=== PATIENT | female | born 1950 | race Caucasian/White ===

== ENCOUNTER 2023-08-28 06:31 | Emergency (ER) | payer MEDICARE, OTHER, SELFPAY ==
[2023-08-28] VITALS (8 sets, daily range): BP systolic 127–164; BP diastolic 55–72; BMI 20.9
[2023-08-28 07:05] LABS: % Basophils 0.7 % (0-2); % Eosinophils 2.2 % (0-6); % Immature Granulocytes 0.6 % (0-0.5); % Lymphocytes 11.9 % (20.5-51.1); % Monocytes 5.2 % (1.7-9.3); % Neutrophils 79.4 % (42.2-75.2); Absolute Basophils 0.1 10^3/uL (0-0.2); Absolute Eosinophils 0.2 10^3/uL (0-0.7); Absolute Immature Granulocytes 0.1 10^3/uL (0-0.05); Absolute Lymphocytes 1.2 10^3/uL (1.2-3.4); Absolute Monocytes 0.5 10^3/uL (0.1-0.6); Absolute Neutrophils 7.9 10^3/uL (1.4-6.5); Hematocrit 40.4 % (37.0-47.0); Hemoglobin 13.7 g/dL (12.0-16.0); Mean Corp Hgb Conc. 33.9 g/dL (33.0-37.0); Mean Corpuscular Hgb 30.3 pg (27.0-31.0); Mean Corpuscular Volume 89.4 fL (81.0-99.0); Mean Platelet Volume 10.7 fL (7.4-10.4); Nucleated Red Blood Cells % 0 %; Platelet Count 187 10^3/uL (130-400); Red Blood Cell Count 4.52 10^6/uL (4.20-5.40)
--- NOTE | 2023-08-28 07:27 | ED.GENMED ---
History of Present Illness
General
Chief Complaint: Chest Pain
Source: patient
Exam Limitations: none
Time Seen by Provider: 08/28/23 07:03
Nursing documentation reviewed up to this point in time: agreed with
Travel History
Have you had any contact with someone who has COVID-19?: No
Do you have any symptoms of coronavirus? Fever > 100 degrees, chills, cough, shortness of breath, sore throat, loss of taste or smell, muscle aches, or headache?: No
History of Present Illness
History of Present Illness:
73-year-old female with a history of breast cancer status postlumpectomy and radiation at [place] on an estrogen cheryl presents for sudden onset of right upper chest pain and shoulder pain that woke her up from sleep at 4 AM. Patient says it
hurts to take a deep breath or move her right arm or change positions. Patient says she got up and tried to walk around thinking maybe it would help but it did not. It was probably an 8 out of 10 when it suddenly started this morning and has
dissipated some to 6 out of 10 if she is not moving or taking a deep breath. She does not have a rash, fever, cough, cold symptoms, nausea or vomiting, diaphoresis. Patient says intermittently sparingly over the last year or 2 she has had right
upper extremity pain when she walks. Patient says she walks 3 to 5 miles a day and usually by the third mile she starts to have some discomfort. It is very sparingly and does not usually bother her but has over the last couple years to the point
that she did speak with her family doctor about it but was never referred to cardiology. She has had no other exertional symptoms. Patient is never had a DVT or PE, she is not had any recent long travel, she has not had any recent surgery. As far
she is aware she has breast cancer free
Past History
Past History
ED Past Medical History: Cancer (Breast)
ED Past Surgical History: Other (Lumpectomy)
Social History
Tobacco: Non-smoker
Alcohol: None
Drug: None
Personal:
Living: alone
Review of Systems
Review of Systems
Allergies reviewed?: Yes
All Other Systems: Not applicable
Phy Exam
Physical Exam
Physical Exam:
GENERAL: Alert , in no apparent distress
EYE: pupils equal and reactive
NECK: Supple
ENT: o/p clr, mmm.
CARDIAC: Regular rate and rhythm .
LUNGS: Clear breath sounds bilaterally, no acute respiratory distress, no wheezes/rales/rhonchi
Chest Wall: Normal inspection, no rash, no bruising, patient has some very mild tenderness to the right upper chest wall and right trapezius muscle most pain is with breathing or changing position
ABDOMEN: Soft, without focal tenderness, no r/g, no cvat, normal bowel sounds
NEUROLOGICAL: Alert and oriented, no focal neuro deficits
SKIN: Warm and dry, skin intact.
MUSCULOSKELETAL: No edema, well perfused. neg liset's sign
Right shoulder normal inspection, painful limited range of motion
PSYCH: Normal and appropriate interaction.
Scores
Heart Score for Chest Pain Patients
STEMI patient?: No
History: Slightly or Non-Suspicious
ECG: Nonspecific Repolarization
Age: >/= 65 years
Risk Factors: No Risk Factors
Troponin: </= Normal Limit
Heart Score for Chest Pain Patients: 3
Heart Score Risk: 2.5% MACE over next 6 weeks
Course
Orders/Labs/Results
Orders:
Orders
08/28/23 06:36
EKG [Electrocardiogram (*1)] Urgent
Reason for Study: Chest Pain
EKG- Treatment ONCE
08/28/23 06:58
CMP [Comprehensive Metabolic Panel] Urgent
Complete Blood Count/With Diff Urgent
Lipase Urgent
Comment: ADD ON
Troponin I Urgent
08/28/23 07:19
CR Chest - 2 Views Urgent
Comment:
Reason For Exam: right sided upper chest pain sudden onset
08/28/23 07:21
Acetaminophen [Tylenol] 650 mg PO NOW STA
08/28/23 07:24
Add On- LAB Urgent
Tests Added?: lipase
08/28/23 07:25
CR Shoulder - Right Min 2 View Urgent
Reason For Exam: right shoulder vinay
08/28/23 07:48
CT Chest Pe Study Urgent
Comment:
Reason For Exam: R upper chest pain with deep breath
08/28/23 09:07
Electrocardiogram (*1) Urgent
Reason for Study: Chest Pain
EKG- Treatment ONCE
08/28/23 09:49
Troponin I Urgent
Abnormal Lab Results
08/28/23
06:58
MPV 10.7 H fL
(7.4-10.4)
Abs Immat Gran (auto) 0.1 H 10^3/uL
(0-0.05)
Absolute Neuts (auto) 7.9 H 10^3/uL
(1.4-6.5)
Immature Gran % 0.6 H %
(0-0.5)
Neutrophils % 79.4 H %
(42.2-75.2)
Lymphocytes % 11.9 L %
(20.5-51.1)
Potassium 3.2 L mmol/L
(3.5-5.1)
08/28/23 06:58
08/28/23 06:58
Vital Signs
Initial and Last Documented VS:
Initial Vital Signs
Resp Pulse Ox
18 99
08/28/23 06:38 08/28/23 06:38
Last Documented Vital Signs
Temp Pulse Resp BP Pulse Ox
98.2 F 55 16 127/55 98
08/28/23 06:40 08/28/23 10:45 08/28/23 10:45 08/28/23 10:43 08/28/23 10:45
MDM/Problems Addressed
Differential Diagnosis Includes:
PE, ACS, chest wall pain, shoulder pain, early zoster
MDM/Problems Addressed:
73-year-old female with a history of breast cancer in the past presents for right upper chest wall and shoulder discomfort that woke her up from sleep at 2 in the morning. Patient has discomfort with range of motion of her shoulder and deep
breathing. She does not otherwise feel short of breath. She has had no rash, fever or chills, recent cough or cold symptoms. On exam the patient is very hesitant to move her right shoulder but I can passively range her fully with mild discomfort,
she has no skin changes, clear lungs, no tachypnea. There is no signs of DVT or PE.
Patient had a full workup here with an EKG which was nonischemic but showing an incomplete right bundle branch block and with her pleuritic pain is concern for PE. Her troponin x 2 were negative, CT PE study negative other than thyroid nodule which
the patient was informed about. She declined any pain medication other than Tylenol initially. On discharge she says she would prefer to take ibuprofen at home. I suspect this is muscular pain. Patient told to watch for rash call her doctor ,
and follow-up. Return precautions were given
*Critical Care Note
Total Time (30-74mins, 75-104mins- exclusive of procedures): Not Applicable
ED Attending Note
-
Portions of this chart may have been created with voice recognition software.� Occasional wrong word or��sound alike� substitutions may have occurred due to the inherent limitations of voice recognition software.
Discharge Plan
Departure
Patient Disposition: Home (Routine Discharge)
Date of Disposition: 08/28/23
Time of Disposition: 10:49
Patient with high blood pressure during this ER visit?: No
Condition: Fair
Covid-19: Not Applicable
Discharge Problem:
Chest wall pain, Acute shoulder pain
Instructions: Chest Pain That Is Not Caused by the Heart (DC)
Referrals:
Jocelyn Kelley MD [Family Provider] - Follow up in 2-3 days
Activity Restrictions/Additional Instructions:
YOUR PAIN IS NOT LIKEYL DUE TO A CARDIAC EMERGENCY
YOU HAD NO SIGNS OF A BLOOD CLOT ON CAT SCAN
YOU DID HAVE WHAT LOOKS LIKE A THYROID NODULE ON THE RIGHT SIDE OF YOUR THYROID
MAKE SURE TO FOLLOW UP WITH YOUR FAMILY DOCTOR AND THEY CAN ORDER AN ULTRASOUND JUST FOR MONITORING
RETURN FO RANY CONCERNS: WORSENING PAIN, SHORTNESS OF BREATH, FEVER, VOMITING, PASISNG OUT, RASH, ETC
OTHERWISE TAKE MOTRIN 400 MG 2-3 TIMES A DAY WITH FOOD FOR THE NEXT FEW DAYS FOR THIS PAIN
Interventions
Interventions:
*Risk Screen - Suicide Last Done: 08/28/23 06:40
*General Assessment Last Done: 08/28/23 06:40
*Neglect/Abuse Screening Last Done: 08/28/23 06:40
ED- Fall Risk Assessment Last Done: 08/28/23 06:40
*ED COVID-19 Vaccine History Last Done: 08/28/23 06:40
*Nursing Disposition Last Done: 08/28/23 11:00
ED- Cardiac Assessment Last Done: 08/28/23 06:55
Discharge Date and Time
Discharge Date/Time: 08/28/23 11:00
[2023-08-28 07:32] LABS: ALT (SGPT) 24 U/L (0-35); AST (SGOT) 32 U/L (14-36); Albumin 3.8 g/dl (3.5-5.0); Alkaline Phosphatase 85 U/L (38-126); Blood Urea Nitrogen 16 mg/dl (7-17); Calcium 9.8 mg/dl (8.4-10.2); Carbon Dioxide 30 mmol/L (22-30); Chloride 104 mmol/L (98-107); Estimated Creatinine Clearance 51 ml/min; Glucose 98 mg/dl (70-99); Potassium 3.2 mmol/L (3.5-5.1); Sodium 136 mmol/L (135-145); Total Bilirubin 1.3 mg/dl (0.2-1.3); Total Protein 6.3 g/dl (6.3-8.2); eGFR > 60.00
[2023-08-28] MEDS: TYLENOL 650 MG PO (07:37)
[2023-08-28 07:41] LABS: Lipase 139 U/L (23-300)
[2023-08-28 07:43] LABS: Troponin I < 0.012 ng/ml
[2023-08-28 10:20] LABS: Troponin I < 0.012 ng/ml
== END 2023-08-28 11:00 | disposition home or self-care (01) ==
LOC: EMR 06:31
PROVIDERS: Physician Assistant; EMERGENCY PHYSICIAN Emergency Medicine; FAMILY PHYSICIAN Family Medicine
DX: R07.89 Other chest pain (principal); M25.511 Pain in right shoulder; E04.1 Nontoxic single thyroid nodule; Z85.3 Personal history of malignant neoplasm of breast
CPT/HCPCS: 99284; 71046; 71275; 73030; 80053; 83690; 84484; 85025; 93005; Q9967